=== PATIENT | female | born 1955 | race Caucasian/White ===

== ENCOUNTER 2017-02-10 12:01 | Emergency (ER) | payer OTHER ==
[2017-02-10 12:10] VITALS: BP 134/61; PULSE 97; RESP 20; TEMP 97.9; O2SAT 96
[2017-02-10] MEDS ORDERED: LOVA10TA PO (12:14)
[2017-02-10] MEDS ORDERED: RANI150T PO (12:14)
[2017-02-10] MEDS ORDERED: AMLO5TAB2 PO (12:14)
[2017-02-10] MEDS ORDERED: PANT40TA3 PO (12:14)
[2017-02-10] MEDS ORDERED: VENL75TA PO (12:14)
--- NOTE | 2017-02-10 13:45 | RADRPT ---
EXAM DATE/TIME: 02/10/2017 13:24 [place] COMPARISON: No previous studies available for comparison. INDICATIONS : Fell, left hip area pain MEDICAL HISTORY : Arthritis. SURGICAL HISTORY : None. ENCOUNTER: Initial ACUITY: 1 day PAIN SCORE: 10/10 LOCATION: Left hip FINDINGS: Examination of the left hip was performed with AP Pelvis. The primary and secondary trabecular patte rn of the femoral neck is intact. Hip joint is in anatomic alignment. There are [id number]-[id number] dege nerative changes including joint space narrowing and osteophyte formation. The acetabulum is grossly intact. CONCLUSION: 1. No acute fracture or dislocation. 2. Mild to moderate osteoarthritis. Tre Banegas MD on February 10, 2017 at 13:42 Board Certified Radiologist. This report was verified electronically.
--- NOTE | 2017-02-10 13:59 | PD ---
HPI Chief Complaint: Back/ Neck Pain or Injury Time Seen by Provider: 12:27 Travel History International Travel<30 days: No Contact w/Intl Traveler<30days: No Traveled to known affect area: No History of Present Illness HPI 61 old female here for left hip and low back pain after she fell walking her dog yesterday. She denies head injury or loss of consciousness. The pain is constant localized to the left low back and Left hip worse with weightbearing and external rotation of the hip. She denies paresthesias or weakness of the extremity. He is slightly relieved with rest. Severity is 6/10. PFSH Past Medical History Anxiety: Yes Depression: Yes GERD: Yes Hypertension: Yes Tubal Ligation: Yes Social History Alcohol Use: No Tobacco Use: No Substance Use: No Allergies-Medications (Allergen,Severity, Reaction): Coded Allergies: No Known Allergies (Unverified , 02/10/17) Reported Meds & Prescriptions Reported Meds & Active Scripts Active Reported Pantoprazole (Pantoprazole Sodium) 40 Mg Tab Unknown Dose PO DAILY Ranitidine (Ranitidine HCl) 150 Mg Tab Unknown Dose PO BID Amlodipine (Amlodipine Besylate) 5 Mg Tab Unknown Dose PO DAILY Lovastatin 10 Mg Tab Unknown Dose PO DAILY Effexor (Venlafaxine HCl) 75 Mg Tab 75 Mg PO DAILY Review of Systems Except as stated in HPI: all other systems reviewed are Neg Physical Exam Narrative GENERAL: Alert well-appearing female resting comfortably on stretcher. She ambulates with a steady gait. SKIN: Warm and dry. HEAD: Normocephalic. EYES: No scleral icterus. No injection or drainage. NECK: Supple, trachea midline. No JVD or lymphadenopathy. CARDIOVASCULAR: Regular rate and rhythm without murmurs, gallops, or rubs. RESPIRATORY: Breath sounds equal bilaterally. No accessory muscle use. GASTROINTESTINAL: Abdomen soft, non-tender, nondistended. MUSCULOSKELETAL: No cyanosis. mild TTP lateral hip. Mild pain with flexion and external rotation of the hip. The pelvis is stable. 2+ distal pulses. BACK: Mild tenderness to the left sacroiliac joint. Without obvious deformity. No CVA tenderness. Data Data Last Documented VS Vital Signs Date Time Temp Pulse Resp B/P (MAP) Pulse Ox O2 Delivery O2 Flow Rate FiO2 02/10/17 12:10 97.9 97 20 134/61 (85) 96 Orders Orders Hip, Uni(Ap&Lat) W Ap Pelvis (02/10/17 ) [facility] Medical Decision Making Medical Screen Exam Complete: Yes Emergency Medical Condition: Yes Differential Diagnosis Hip fracture, hip sprain, lumbar strain Narrative Course 61-year-old female with left low back and hip pain after falling holding her dog yesterday. Her physical exam is reassuring. She has mild tenderness to the hip and the left sacroiliac joint. Pelvis is stable. The extremities are wrestling intact. She is ambulatory. X-ray is negative for fracture. Patient was offered pain medication but she declined. Diagnosis Primary Impression: Hip strain Qualified Codes: S76.012A - Strain of muscle, fascia and tendon of left hip, initial encounter Referrals: Primary Care Physician Additional Instructions: Take [id number] Tylenol or Motrin as needed for pain. Take your muscle relaxer as needed for muscle spasm. Follow-up with her primary doctor. Disposition: 01 DISCHARGE HOME Condition: Stable Janelle Vera Feb 10, 2017 13:59
== END 2017-02-10 14:10 | disposition home or self-care (01) ==
LOC: PHEFT 12:01 → NEPA 14:10
DX: S76.012A Strain of muscle, fascia and tendon of left hip, initial encounter (principal); M54.5 Low back pain; I10 Essential (primary) hypertension; Z87.19 Personal history of other diseases of the digestive system; Z86.59 Personal history of other mental and behavioral disorders; W18.39XA Other fall on same level, initial encounter; Y93.K1 Activity, walking an animal
CPT/HCPCS: 73502; 99282